=== PATIENT | female | born 1985 | race African-American/Black ===

== ENCOUNTER 2020-07-12 13:19 | Emergency (ER) | payer MEDICAID, OTHER ==
[~2020-07-12] VITALS: Ht 157.5 cm; Wt 82.0 kg
[2020-07-12 13:32] VITALS: BP 141/89
[2020-07-12 15:27] LABS: CLARITY URINE CLEAR (CLEAR); COLOR URINE YELLOW (YELLOW); KETONES URINE NEGATIVE (NEGATIVE); LEUKOCYTE ESTERASE URINE 2+ (NEGATIVE); NITRITE URINE NEGATIVE (NEGATIVE); OCCULT BLOOD URINE 2+ (NEGATIVE); PH URINE 5.5 (4.5-8.0); PROTEIN URINE NEGATIVE (NEGATIVE); SPECIFIC GRAVITY URINE 1.017 (1.005-1.030); UROBILINOGEN URINE 0.2 E.U./dL (0.2-1.0)
== END 2020-07-12 16:05 | disposition home or self-care (01) ==
LOC: ER 13:19
DX: N39.0 Urinary tract infection, site not specified (principal); R31.0 Gross hematuria; R03.0 Elevated blood-pressure reading, without diagnosis of hypertension
CPT/HCPCS: 81003; 81025; 99283

== ENCOUNTER 2022-01-07 09:02 | Emergency (ER) | payer MEDICAID ==
[~2022-01-07] VITALS: Ht 162.6 cm; Wt 75.0 kg
[2022-01-07] MEDS ORDERED: HYDR-4001 MT (09:19)
[2022-01-07] MEDS ORDERED: HYDROCODONE/ACETAMINOPHEN 5/325MG TABLET PO ONE (09:30)
[2022-01-07 09:38] VITALS: BP 126/86
== END 2022-01-07 09:39 | disposition home or self-care (01) ==
LOC: ER 09:29
DX: S02.5XXA Fracture of tooth (traumatic), initial encounter for closed fracture (principal); Z98.890 Other specified postprocedural states; X58.XXXA Exposure to other specified factors, initial encounter; Y93.89 Activity, other specified; Y92.89 Other specified places as the place of occurrence of the external cause; Y99.8 Other external cause status
CPT/HCPCS: 99283